=== PATIENT | female | born 1980 | race Caucasian/White ===

== ENCOUNTER 2020-07-27 05:45 | Day surgery (SDC) | payer BC, MEDICARE ==
[2020-07-25 13:26] LABS: BASOPHILS % (AUTO) 0.4 % (0.0-2.0); EOSINOPHILS % (AUTO) 3.8 % (1.0-6.0); HEMATOCRIT 41.4 % (36-46); HEMOGLOBIN 14.1 g/dL (12.0-16.0); LYMPHOCYTES # (AUTO) 1.9 K/uL (1.0-4.8); LYMPHOCYTES % (AUTO) 34.1 % (22.0-44.0); MEAN CORPUSCULAR HEMOGLOBIN 29.8 pg (26.0-34.0); MEAN CORPUSCULAR VOLUME 88 fL (80-100); MONOCYTES # (AUTO) 0.5 K/uL (0.1-1.0); MONOCYTES % (AUTO) 8.3 % (2.0-9.0); NEUTROPHILS % (AUTO) 53.4 % (40.0-70.0); PLATELET COUNT (AUTO) 286 K/uL (150-450); RED BLOOD CELL COUNT(AUTO) 4.73 MIL/uL (4.00-5.20); RED CELL DISTRIBUTION WIDTH 12.9 % (11.5-14.5)
[2020-07-25 15:49] LABS: COVID AG,FIA SOURCE NASOPHARYNGEAL
[~2020-07-27] VITALS: Ht 165.1 cm; Wt 61.4 kg
[~2020-07-27 05:45] MED LIST: CeFAZolin 2 GM/DEXTROSE 50 ML IV ONE; ESCI-8 PO; LAMO100 PO; RINGERS SOLUTION,LACTATED 1,000 ML IV ONE
[2020-07-27] MEDS ORDERED: BUPIVACAINE LIPOSOME/PF 1.3%-13.3MG/ML SUSPENSION 20 ML VIAL INJ ONE (06:00)
[2020-07-27] MEDS ORDERED: BUPIVACAINE HCL 0.25% 50 ML VIAL ONE (06:07)
[2020-07-27] MEDS ORDERED: VANCOMYCIN HCL 1 GM/VIAL ONE (06:08)
[2020-07-27] MEDS ORDERED: MICROFIBRILLAR COLLAGEN 1 GM PACKAGE TP ONE (06:09)
[2020-07-27] MEDS ORDERED: IOHEXOL 240 MG/ML 20 ML VIAL ONE (06:09)
[2020-07-27] MEDS ORDERED: SODIUM CHLORIDE 0.9% 1,000 ML ONE (06:10)
[2020-07-27] MEDS ORDERED: METHYLENE BLUE 0.5% 10 ML AMPULE IVP ONE ×2 (06:15)
[2020-07-27] MEDS ORDERED: BUPIVACAINE HCL/PF 0.25% 30 ML VIAL ONE (06:23)
[2020-07-27] MEDS ORDERED: MUPIROCIN CALCIUM 2% 22 GM OINTMENT ONE (06:23)
[2020-07-27] MEDS ORDERED: CeFAZolin 2 GM/DEXTROSE 50 ML IV ONE (07:00)
[2020-07-27] MEDS ORDERED: SUGAMMADEX SODIUM 200 MG/2 ML VIAL IVP ONE (07:21)
[2020-07-27] MEDS ORDERED: HYDROmorphone 2 MG/ML SYRINGE IVP PRN (07:30)
[2020-07-27] MEDS ORDERED: FentaNYL CITRATE-PF 100 MCG/2 ML VIAL IVP PRN (07:30)
[2020-07-27] MEDS ORDERED: RINGERS SOLUTION,LACTATED 1,000 ML IV ONE (07:48)
[2020-07-27] MEDS ORDERED: OXYGEN THERAPY IH SCH (08:00)
[2020-07-27] MEDS ORDERED: HYDROmorphone 2 MG/ML SYRINGE ONE (09:44)
[2020-07-27] MEDS ORDERED: DEXAMETHASONE SOD PHOS 4 MG/ML VIAL IVP ONE (12:00)
[2020-07-27] MEDS ORDERED: KETOROLAC TROMETHAMINE 60 MG/2 ML VIAL IM ONE (12:00)
[2020-07-27] MEDS ORDERED: METOCLOPRAMIDE HCL 5 MG/ML 2 ML VIAL IVP ONE (12:00)
[2020-07-27] MEDS ORDERED: ONDANSETRON HCL 4 MG/2 ML VIAL IVP ONE (12:00)
[2020-07-27] MEDS ORDERED: LABETALOL HCL 5 MG/ML 20 ML VIAL IVP ONE (12:00)
[2020-07-27] MEDS ORDERED: FentaNYL CITRATE-PF 100 MCG/2 ML VIAL IVP ONE (12:00)
[2020-07-27] MEDS ORDERED: LIDOCAINE/PF 2% 5 ML VIAL IM ONE (12:00)
[2020-07-27] MEDS ORDERED: NEOSTIGMINE METHYLSULFATE 1 MG/ML 10 ML VIAL IVP ONE (12:00)
[2020-07-27] MEDS ORDERED: PROPOFOL 1% 20 ML VIAL IVP ONE (12:00)
[2020-07-27] MEDS ORDERED: ROCURONIUM BROMIDE 10 MG/ML 5 ML VIAL IVP ONE (12:00)
[2020-07-27] MEDS ORDERED: MIDAZOLAM HCL 2 MG/2 ML VIAL IVP ONE (12:00)
== END 2020-07-27 10:55 | disposition home or self-care (01) ==
LOC: SURGERY 05:45
PROVIDERS: ATTEND Orthopaedic Surgery
DX: M67.431 Ganglion, right wrist (principal); G40.909 Epilepsy, unspecified, not intractable, without status epilepticus; Z79.899 Other long term (current) drug therapy
CPT/HCPCS: 25020; 25071; 25246; 36415; 64721; 84702; 85025; 87426; C9290; C9803; J0690 ×2; J1100; J1170; J1885; J2250; J2405; J2704; J2765; J3010; J3370; J3490 ×4; J7030; J7120; Q9966; 88304